=== PATIENT | female | born 1980 | race Caucasian/White ===

== ENCOUNTER 2017-07-02 16:29 | Emergency (ER) | payer OTHER ==
[~2017-07-02] VITALS: Ht 152.4 cm; Wt 47.0 kg
[~2017-07-02 16:29] MED LIST: LABE100T2 PO
[2017-07-02 16:30] VITALS: BP 151/92; PULSE 130; RESP 20; TEMP 98.2; O2SAT 98
[2017-07-02] MEDS ORDERED: ADD MED (16:38)
[2017-07-02] MEDS ORDERED: CLON1 PO (16:38)
[2017-07-02] MEDS ORDERED: WELLTAB39 PO (16:38)
--- NOTE | 2017-07-02 16:59 | PD ---
HPI Chief Complaint: Anxiety Time Seen by Provider: 16:35 Travel History International Travel<30 days: No Contact w/Intl Traveler<30days: No Traveled to known affect area: No History of Present Illness HPI Patient is a 37-year-old female with history of anxiety presents emergency department for evaluation of the worst anxiety attack of her life. 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 She states she left the house she started having feelings of paralysis all of her body feeling very anxious. EMS reports they gave 2 mg of Ativan IV prior to arrival. The patient states she takes Klonopin as well as a sleeping pill every day. She is also on medicine for ADHD. When asked if she is a ring diagnosed bipolar or schizophrenia the patient laughs and states "I probably could have been." She states her psychiatrist to sending the benzodiazepines are not working for her and is currently trying to find a new medicine but apparently her psychiatrist is been out of the office recently. She is a relatively positive review of systems endorses shortness of breath some nausea but denies any abdominal pain or chest pain. PFSH Past Medical History Arthritis: No Asthma: No Autoimmune Disease: No Anxiety: Yes Depression: Yes Heart Rhythm Problems: No Cancer: No Cardiovascular Problems: No High Cholesterol: No Chemotherapy: No Chest Pain: No Congestive Heart Failure: No COPD: No Diabetes: No Diminished Hearing: No Endocrine: No Gastrointestinal Disorders: No Genitourinary: Yes Headaches: Yes Hypertension: Yes Immune Disorder: No Implanted Vascular Access Dvce: No Kidney Stones: Yes (12 YEARS AGO) Musculoskeletal: Yes (METACARPAL FRACTURE) Neurologic: No Psychiatric: Yes Reproductive: No Respiratory: No Radiation Therapy: Yes Thyroid Disease: No ?: Not LMP: LAST WEEK : 3 Para: 2 Past Surgical History AICD: No Pacemaker: No Other Surgery: Yes ("KIDNEY STONE SURGERY": AGE 21) Social History Alcohol Use: Yes (CCAS) Tobacco Use: No Substance Use: No Allergies-Medications (Allergen,Severity, Reaction): Coded Allergies: hydrochlorothiazide (Unverified Allergy, Severe, Shortness of Breath, 07/02) ZESTORETIC lisinopril (Unverified Allergy, Severe, Shortness of Breath, 07/02/17) ZESTORETIC: HCTZ AND LISINOPRIL TOGETHER Reported Meds & Prescriptions Reported Meds & Active Scripts Active Reported [Add Med] 1 Klonopin (Clonazepam) 1 Mg Tab 1 Mg PO TID PRN Wellbutrin Xl 24 HR (Bupropion HCl) 300 Mg Tab 300 Mg PO DAILY Review of Systems Except as stated in HPI: all other systems reviewed are Neg Physical Exam Narrative GENERAL: [Well-developed well-nourished, heightened level of awareness. SKIN: Focused skin assessment warm/dry. HEAD: Atraumatic. Normocephalic. EYES: Pupils equal and round. No scleral icterus. No injection or drainage. ENT: No nasal bleeding or discharge. Mucous membranes pink and moist. NECK: Trachea midline. No JVD. CARDIOVASCULAR: Regular rhythm with tachycardia. No murmur appreciated. 2+ bilateral equal pulses in all 4 extremities. RESPIRATORY: No accessory muscle use. Clear to auscultation. Breath sounds equal bilaterally. GASTROINTESTINAL: Abdomen soft, non-tender, nondistended. Hepatic and splenic margins not palpable. MUSCULOSKELETAL: No obvious deformities. No clubbing. No cyanosis. No edema. Homans sign negative. NEUROLOGICAL: Awake and alert. Oriented 4, cranial nerves II through XII are grossly intact and nonfocal.. PSYCHIATRIC: Patient with heightened level of awareness despite the 2 mg of Ativan, nearly flight of ideas and continuously speaks in a very high rate. Denies suicidal or homicidal ideation. She states she feels like she is becoming paralyzed again. Data Data Last Documented VS Vital Signs Date Time Temp Pulse Resp B/P (MAP) Pulse Ox O2 Delivery O2 Flow Rate FiO2 07/02/17 18:26 07/02/17 18:12 110 20 100 Room Air 07/02/17 16:30 98.2 Orders Orders Complete Blood Count With Diff (07/02/17 16:51) Basic Metabolic Panel (Bmp) (07/02/17 16:51) Electrocardiogram (07/02/17 16:51) Haloperidol Inj (Haldol Inj) (07/02/17 17:00) Diphenhydramine Inj (Benadryl Inj) (07/02/17 17:00) Sodium Chlor 0.9% 1000 Ml Inj (Ns 1000 M (07/02/17 17:00) Urinalysis - C+S If Indicated (07/02/17 17:02) Ed Urine Pregnancytest Poc (07/02/17 17:02) Thyroid Stimulating Hormone (07/02/17 17:02) Ed Discharge Order (07/02/17 18:11) Labs Laboratory Tests Test 07/02/17 17:00 White Blood Count 10.2 TH/MM3 Red Blood Count 4.62 MIL/MM3 Hemoglobin 14.0 GM/DL Hematocrit 41.7 % Mean Corpuscular Volume 90.3 FL Mean Corpuscular Hemoglobin 30.3 PG Mean Corpuscular Hemoglobin Concent 33.6 % Red Cell Distribution Width 12.4 % Platelet Count 407 TH/MM3 Mean Platelet Volume 7.0 FL Neutrophils (%) (Auto) 84.9 % Lymphocytes (%) (Auto) 9.1 % Monocytes (%) (Auto) 5.0 % Eosinophils (%) (Auto) 0.5 % Basophils (%) (Auto) 0.5 % Neutrophils # (Auto) 8.6 TH/MM3 Lymphocytes # (Auto) 0.9 TH/MM3 Monocytes # (Auto) 0.5 TH/MM3 Eosinophils # (Auto) 0.1 TH/MM3 Basophils # (Auto) 0.1 TH/MM3 CBC Comment DIFF FINAL Differential Comment Urine Collection Type VOIDED Urine Color STRAW Urine Turbidity CLEAR Urine pH 7.5 Urine Specific Valders 1.008 Urine Protein NEG mg/dL Urine Glucose (UA) NEG mg/dL Urine Ketones 15 mg/dL Urine Occult Blood NEG Urine Nitrite NEG Urine Bilirubin NEG Urine Leukocyte Esterase NEG Urine WBC 0-2 /hpf Urine Squamous Epithelial Cells 0-3 /hpf Microscopic Urinalysis Comment CULT NOT INDICATED Blood Urea Nitrogen 10 MG/DL Creatinine 0.80 MG/DL Random Glucose 143 MG/DL Calcium Level 8.8 MG/DL Sodium Level 137 MEQ/L Potassium Level 3.0 MEQ/L Chloride Level 104 MEQ/L Carbon Dioxide Level 23.5 MEQ/L Anion Gap 10 MEQ/L Estimat Glomerular Filtration Rate 80 ML/MIN Thyroid Stimulating Hormone 3rd Gen 3.040 uIU/ML [facility] Medical Decision Making Medical Screen Exam Complete: Yes Emergency Medical Condition: Yes Differential Diagnosis Erlinda, panic attack, electrolyte abnormality, hyperthyroidism. Narrative Course Patient roomed emergency department, despite 2 mg of Ativan receiving in route she still remained significantly tachycardic. Basic labs are reassuring, TSH normal. No shortness of breath symptoms after treatment, my impression patient' s symptoms are explained by diagnosis well outside pulmonary embolism is no indication further workup for that differential as I have fairly low suspicion for. She was given Benadryl and Haldol heart rate is normalized, she is feeling better but still easily aroused. Given her size is certainly taking a lot of sedated medications to keep her calm. I discussed that she is on stimulant medications for her diagnosis of ADD and she needs to discuss this with her psychiatrist this is likely aggravating her panic attacks. At this time she would like to go home and she is stable to do so. Discussed return to ED criteria Diagnosis Primary Impression: Anxiety attack Additional Impression: Tachycardia Disposition: 01 DISCHARGE HOME Condition: Stable Kasi Colindres MD Jul 02, 2017 16:59
[2017-07-02] MEDS ORDERED: diphenhydrAMINE HCL 50 MG/ML VIAL IV PUSH ONE (17:00)
[2017-07-02] MEDS ORDERED: SODIUM CHLOR 0.9% 1000 ML INJ 1,000 ML IV ONE (17:00)
[2017-07-02] MEDS ORDERED: HALOPERIDOL LACTATE 5 MG/ML AMP IM ONE (17:00)
[2017-07-02 17:07] LABS: AUTOMATED NEUTROPHIL # 8.6 TH/MM3 (1.8-7.7); BASOPHIL # 0.1 TH/MM3 (0-0.2); BASOPHIL % 0.5 % (0.0-2.0); EOSINOPHIL # 0.1 TH/MM3 (0-0.4); EOSINOPHIL % 0.5 % (0.0-4.0); HEMATOCRIT 41.7 % (35.0-46.0); LYMPH % 9.1 % (9.0-44.0); LYMPHOCYTE # 0.9 TH/MM3 (1.0-4.8); MEAN CELL VOLUME 90.3 FL (80.0-100.0); MEAN CORPUSCULAR HEMOGLOBIN 30.3 PG (27.0-34.0); MEAN CORPUSCULAR HGB CONC 33.6 % (32.0-36.0); NEUT % 84.9 % (16.0-70.0); PLATELET COUNT 407 TH/MM3 (150-450); RED BLOOD COUNT 4.62 MIL/MM3 (4.00-5.30); RED CELL DISTRIBUTION WIDTH 12.4 % (11.6-17.2); WHITE BLOOD COUNT 10.2 TH/MM3 (4.0-11.0)
[2017-07-02 17:15] LABS: BLOOD, URINE NEG (NEG); GLUCOSE,URINE NEG (NEG); HEMO FLAGS DIFF FINAL; KETONE, URINE 15 mg/dL (NEG); NITRITE,URINE NEG (NEG); PH, URINE 7.5 (5.0-8.5)
[2017-07-02 17:20] LABS: BICARBONATE 23.5 MEQ/L (21.0-32.0)
[2017-07-02 17:21] VITALS: BP 139/98; PULSE 108; RESP 18; O2SAT 98
[2017-07-02 17:25] LABS: COMMENT (UR) CULT NOT INDICATED; CULTURE IF INDICATED CULT NOT INDICATED; METHOD OF COLLECTION VOIDED; SQUAMOUS EPITHELIAL CELL URINE 0-3 /hpf (0-5); URINE COLOR STRAW (YELLW/STRAW); WBC, URINE 0-2 /hpf (0-5)
[2017-07-02 18:12] VITALS: BP 135/75; PULSE 110; RESP 20; O2SAT 100
--- NOTE | 2017-07-03 22:39 | EKG ---
Date Performed: 07/02/2017 Time Performed: 17:03:28 PTAGE: 37 years EKG: SINUS TACHYCARDIA WITH SHORT NV INTERVAL MARKED LEFT AXIS DEVIATION MINIMAL ST DEPRESSION A BNORMAL ECG PREVIOUS TRACING : 03/03/2015 17.28 Compared to the previous tracing sinus tachycardia is new DOCTOR: Hany Staley Interpretating Date/Time 07/03/2017 22:39:33
== END 2017-07-02 18:28 | disposition home or self-care (01) ==
LOC: PHED 16:29
DX: F41.0 Panic disorder [episodic paroxysmal anxiety] (principal); R00.0 Tachycardia, unspecified
CPT/HCPCS: 80048; 81001; 84443; 84703; 85025; 93005; 96361; 96372; 96374; 99284; J1200; J1630; J7030

== ENCOUNTER 2017-12-17 09:08 | Emergency (ER) | payer MEDICAID, OTHER ==
[~2017-12-17] VITALS: Ht 152.4 cm; Wt 50.0 kg
[~2017-12-17 09:08] MED LIST changes: +ADD MED; +CLON1 PO; -LABE100T2 PO; +WELLTAB39 PO
[2017-12-17 09:11] VITALS: BP 155/100; PULSE 64; RESP 16; TEMP 98.2; O2SAT 100
--- NOTE | 2017-12-17 09:37 | RADRPT ---
EXAM DATE/TIME: 12/17/2017 09:24 [place] COMPARISON: No previous studies available for comparison. INDICATIONS : Fell 1 month ago, has right elbow pain from fall MEDICAL HISTORY : None. SURGICAL HISTORY : None. ENCOUNTER: Initial ACUITY: 1 month PAIN SCORE: 5/10 LOCATION: Right elbow FINDINGS: Multiple view examination of the right elbow demonstrates no soft tissue swelling, joint effusion, or fracture. The osseous structures are in normal alignment. Bony mineralization is normal. No radio graphic evidence of elbow effusion. No radiopaque foreign bodies. CONCLUSION: The osseous structures about the elbow are grossly intact. Mac Reaves MD on December 17, 2017 at 9:35 Board Certified Radiologist. This report was verified electronically.
[2017-12-17] MEDS ORDERED: DICL50TA3 PO (09:43)
--- NOTE | 2017-12-17 09:44 | PD ---
HPI Chief Complaint: Injury Time Seen by Provider: 09:15 Travel History International Travel<30 days: No Contact w/Intl Traveler<30days: No Traveled to known affect area: No History of Present Illness HPI 37-year-old female here with right elbow pain and swelling 3 weeks. She reports she fell onto a flexed elbow after a trip and fall several weeks prior. She has had mild pain since the fall. She noticed an area of swelling on the elbow which prompted her visit today. That swelling has been present for several weeks. Denies altered sensation or weakness of the extremity. Symptom severity is mild. Aggravated by range of motion and relieved with rest. PFSH Past Medical History Arthritis: No Asthma: No Autoimmune Disease: No Anxiety: Yes Depression: Yes Heart Rhythm Problems: No Cancer: No Cardiovascular Problems: No High Cholesterol: No Chemotherapy: No Chest Pain: No Congestive Heart Failure: No COPD: No Diabetes: No Diminished Hearing: No Endocrine: No Gastrointestinal Disorders: No Genitourinary: Yes Headaches: Yes Hypertension: Yes Immune Disorder: No Implanted Vascular Access Dvce: No Kidney Stones: Yes (12 YEARS AGO) Musculoskeletal: Yes (METACARPAL FRACTURE) Neurologic: No Psychiatric: Yes Reproductive: No Respiratory: No Radiation Therapy: Yes Thyroid Disease: No ?: Not LMP: NOW : 3 Para: 2 Past Surgical History AICD: No Pacemaker: No Other Surgery: Yes ("KIDNEY STONE SURGERY": AGE 21) Social History Alcohol Use: Yes (CCAS) Tobacco Use: No Substance Use: No Allergies-Medications (Allergen,Severity, Reaction): Coded Allergies: hydrochlorothiazide (Unverified Allergy, Severe, Shortness of Breath, 12/17) ZESTORETIC lisinopril (Unverified Allergy, Severe, Shortness of Breath, 12/17/17) ZESTORETIC: HCTZ AND LISINOPRIL TOGETHER Reported Meds & Prescriptions Reported Meds & Active Scripts Active Diclofenac Sodium DR (Diclofenac Sodium) 50 Mg Tabdr 50 Mg PO TID Review of Systems Except as stated in HPI: all other systems reviewed are Neg Physical Exam Narrative GENERAL: Alert and well-appearing 37-year-old female. SKIN: Warm and dry. HEAD: Normocephalic. EYES: No scleral icterus. No injection or drainage. NECK: Supple, trachea midline. No JVD or lymphadenopathy. CARDIOVASCULAR: Regular rate and rhythm without murmurs, gallops, or rubs. RESPIRATORY: Breath sounds equal bilaterally. No accessory muscle use. GASTROINTESTINAL: Abdomen soft, non-tender, nondistended. MUSCULOSKELETAL: No cyanosis. rue: Olecranon bursitis to the right elbow. No overlying erythema or warmth. No obvious deformity. She is able to flex and extend the elbow without difficulty. Normal sensation distally. Palpable pulses. Brisk cap refill. BACK: Nontender without obvious deformity. No CVA tenderness. Data Data Last Documented VS Vital Signs Date Time Temp Pulse Resp B/P (MAP) Pulse Ox O2 Delivery O2 Flow Rate FiO2 12/17/17 09:11 98.2 64 16 155/100 (118) 100 Orders Orders Elbow, Complete (4 Vws) (12/17/17 ) [facility] Medical Decision Making Medical Screen Exam Complete: Yes Emergency Medical Condition: Yes Differential Diagnosis bursitis, elbow fx, contusion Narrative Course 37 year old female w/ r elbow bursitis. No suspicion of infection. xray was negative for fx. plan- NSAIDS, rest, f/u with ortho Diagnosis Primary Impression: Bursitis Qualified Codes: M70.31 - Other bursitis of elbow, right elbow Referrals: Orthopedist Primary Care Physician Additional Instructions: medication as directed. follow up with primary doctor or orthopedist Scripts Diclofenac Sodium (Diclofenac Sodium ) 50 Mg Tabdr 50 MG PO TID, #30 TAB 0 Refills Prov: Jennie Casey 12/17/17 Disposition: 01 DISCHARGE HOME Condition: Stable Jennie Casey December 17, 2017 09:43
== END 2017-12-17 10:00 | disposition home or self-care (01) ==
LOC: PHEFT 09:08
DX: M70.31 Other bursitis of elbow, right elbow (principal); W01.0XXA Fall on same level from slipping, tripping and stumbling without subsequent striking against object, initial encounter; I10 Essential (primary) hypertension
CPT/HCPCS: 73080; 99283